=== PATIENT | female | born 1980 | race Caucasian/White ===

== ENCOUNTER 2019-05-10 12:01 | Inpatient (IN) | payer MEDICAID ==
[~2019-05-10] VITALS: Ht 167.6 cm; Wt 78.9 kg
[2019-05-10 12:26] LABS: HEMOGLOBIN 14.3 g/dL (12-16); MCH 30.9 pg (26.0-34.0); MCHC 34.9 g/dL (31.0-37.0); MCV 88.6 fL (80.0-100.0); MEAN PLATELET VOLUME 9.5 fL (7.4-10.4); PLATELET COUNT 267 10x3/uL (130-400); RBC 4.63 10x6/uL (4.00-5.40); RDW 12.4 % (11.5-14.5); WBC 21.2 10x3/uL (4.8-10.8)
[2019-05-10 12:36] LABS: HCG SERUM NEGATIVE (NEGATIVE)
[2019-05-10 12:51] LABS: LYMPHOCYTES 4 % (15-50); NEUTROPHILS 84 % (40-80); PLATELET ESTIMATE NORMAL
[2019-05-10 12:56] LABS: ALBUMIN 3.5 g/dL (3.4-5.0); ALKALINE PHOSPHATASE 85 U/L (46-116); ALT (SGPT) 19 U/L (10-68); AMYLASE - SERUM 12 U/L (25-115); BILIRUBIN - TOTAL 0.97 mg/dL (0.2-1.3); CALC OSMOLALITY 271 mosm/kg (275-300); CALCIUM 9.1 mg/dL (8.5-10.1); CHLORIDE - SERUM 102 mmol/L (98-107); CREATININE - SERUM 0.8 mg/dL (0.6-1.3); GLUCOSE 114 mg/dL (74-106); LIPASE 36 U/L (73-393); PROTEIN - SERUM 7.3 g/dL (6.4-8.2); SODIUM 136 mmol/L (136-145); UREA NITROGEN 9 mg/dL (7-18); eGFR NON AFRICAN AMERICAN 84 mL/min (90-120)
--- NOTE | 2019-05-10 14:07 | NUR ---
PT REPORTS "SPASMS" IN RIGHT FLANK AREA AT THIS TIME. EDP, ISADORA, INFORMED.
[2019-05-10 14:11] VITALS: BP 132/89
[2019-05-10 14:43] LABS: APPEARANCE CLEAR (CLEAR); BILIRUBIN NEGATIVE (NEGATIVE); COLOR YELLOW (YELLOW); GLUCOSE NEGATIVE (NEGATIVE); KETONE NEGATIVE (NEGATIVE); NITRITE NEGATIVE (NEGATIVE); PROTEIN NEGATIVE (NEGATIVE); SPECIFIC GRAVITY 1.005 (1.005-1.020); UROBILINOGEN NORMAL (NORMAL)
[2019-05-10 14:46] LABS: HCG URINE NEGATIVE (NEGATIVE)
--- NOTE | 2019-05-10 15:00 | NUR ---
DR. MUIR AT BEDSIDE UPDATING PT ON POC.
--- NOTE | 2019-05-10 15:01 | NUR ---
RECEIVED REPORT FROM ERNIE LEONE
--- NOTE | 2019-05-10 15:04 | NUR ---
PT REPORT GIVEN TO ERNIE SAM, UTILIZING SBAR FORMAT.
--- NOTE | 2019-05-10 15:15 | NUR ---
PT PROVIDED WITH ICE WATER AT THIS TIME.
[2019-05-10 17:14] VITALS: BP 122/70; BMI 27.5
[2019-05-10 18:16] LABS: UDS - AMPHET POSITIVE QUAL (NEGATIVE); UDS - BARB NEGATIVE QUAL (NEGATIVE); UDS - BENZO NEGATIVE QUAL (NEGATIVE); UDS - COCAINE NEGATIVE QUAL (NEGATIVE); UDS - OPIATE POSITIVE QUAL (NEGATIVE); UDS - PCP NEGATIVE QUAL (NEGATIVE); UDS - THC NEGATIVE QUAL (NEGATIVE)
[2019-05-10 20:00] VITALS: BP 110/73
[2019-05-11] VITALS: BP 109/64
[2019-05-11 04:00] VITALS: BP 100/67
[2019-05-11 06:31] LABS: BASOPHILS 0.2 % (0-2); EOSINOPHILS 0.3 % (0-7); HEMATOCRIT 37.8 % (36.0-48.0); HEMOGLOBIN 12.7 g/dL (12-16); IMMATURE GRANULOCYTES 0.3 % (0-5); LYMPHOCYTES 7.7 % (15-50); MCH 30.5 pg (26.0-34.0); MCHC 33.6 g/dL (31.0-37.0); MEAN PLATELET VOLUME 9.8 fL (7.4-10.4); MONOCYTES 4.2 % (2-11); NEUTROPHILS 87.3 % (40-80); PLATELET COUNT 241 10x3/uL (130-400); RBC 4.17 10x6/uL (4.00-5.40); RDW 12.7 % (11.5-14.5); WBC 17.8 10x3/uL (4.8-10.8)
[2019-05-11 06:54] LABS: MCV 90.6 fL (80.0-100.0)
[2019-05-11 07:14] LABS: ALBUMIN 2.9 g/dL (3.4-5.0); ALKALINE PHOSPHATASE 76 U/L (46-116); ALT (SGPT) 15 U/L (10-68); BILIRUBIN - TOTAL 0.67 mg/dL (0.2-1.3); CALC OSMOLALITY 272 mosm/kg (275-300); CALCIUM 8.5 mg/dL (8.5-10.1); CARBON DIOXIDE 24.9 mmol/L (21.0-32.0); CHLORIDE - SERUM 103 mmol/L (98-107); CREATININE - SERUM 0.7 mg/dL (0.6-1.3); GLUCOSE 83 mg/dL (74-106); POTASSIUM - SERUM 3.4 mmol/L (3.5-5.1); PROTEIN - SERUM 6.5 g/dL (6.4-8.2); SODIUM 138 mmol/L (136-145); UREA NITROGEN 7 mg/dL (7-18); eGFR NON AFRICAN AMERICAN > 90 mL/min (90-120)
--- NOTE | 2019-05-11 08:02 | HP ---
PATIENT: ADRWIN SUAREZ MEDICAL RECORD: [id number] ACCOUNT: [id number] LOCATION:[facility] [address] : [birth year] ADMISSION DATE: 05/10/19 PCP: No PCP HISTORY AND PHYSICAL EXAMINATION DATE OF ADMISSION: 05/10/2019 CHIEF COMPLAINT: Abdominal pain. HISTORY OF PRESENT ILLNESS: This is a 38-year-old white female who is followed by Pretty Brock APN, at [facility]. She presented to the Emergency Department today complaining of abdominal cramping and pain mostly across the lower abdomen but also in the right flank, it has been going on for 2-3 days. The patient denies having nausea or vomiting. She denies having diarrhea. She states sometimes has been hard for her to urinate. In the Emergency Room, her CBC showed a white blood cell count 21,200. She was not anemic, there were 84% PMNs and 12% bands. Basic metabolic panel was unremarkable. Liver functions were normal. Amylase and lipase were actually low. Urinalysis was normal. CT of the abdomen and pelvis showed no acute process seen. Her heart rate when she arrived in the ER was 130 and coupling her elevated white blood cell count and her tachycardia, especially with a left shift of the white blood cell count, there was a concern for possible sepsis and she is admitted. PAST MEDICAL HISTORY: She has had lumbar spondylosis. She has had a history of neuropathy. There was a note from [facility] from early 2018, where they were trying to treat her lumbar pain using tramadol; however, her urine drug screen then came back positive for methamphetamines and they did not write any further pain medicines. PAST SURGICAL HISTORY: She states for about 10 years ago at an outside hospital out of this town she had "surgery" in the thoracic area. She states her lungs were surrounded by fluid. ALLERGIES: None known. CURRENT MEDICATIONS: She is not taking anything. She states she has stopped all her medications. She had been on duloxetine, gabapentin, tramadol, metoprolol tartrate, reportedly for hypertension and ProAir HFA as needed for breathing. SOCIAL HISTORY: She is not . She has a child. FAMILY HISTORY: Mother is living with a history of hypertension and arthritis. Father is living with a history of some sort of cancer. HABITS: She smokes cigarettes. Denies alcohol or drug use. REVIEW OF SYSTEMS: GENERAL: No major weight changes. HEENT: No particular sinus or allergy problems. RESPIRATORY: No diagnosis of emphysema or asthma. CARDIAC: No diagnosis of heart problems. HISTORY AND PHYSICAL [id number] DARWIN SUAREZ GASTROINTESTINAL: Denies diarrhea, constipation or heartburn. GENITOURINARY: No significant problems there. MUSCULOSKELETAL: He has had low back pain with spondylosis. NEUROLOGIC: No seizures. No migraines. PSYCHIATRIC: There is no diagnosis of depression or anxiety. PHYSICAL EXAMINATION: VITAL SIGNS: In the ER, her initial vital signs show temperature 98.8, heart rate 130, respirations 18, blood pressure 130/78, O2 sat 100%. When she got to the floor, temperature was 99.3, heart rate 119, respirations 18, blood pressure 122/70, O2 sat 97%. GENERAL: She is awake and alert. She is complaining of abdominal pain and cramping. SKIN: Warm and dry. HEENT: Grossly within normal limits. NECK: Supple. HEART: Tachycardic. ABDOMEN: Soft. There is generalized tenderness especially in the lower abdomen. No mass. There is no guarding. There is no rebound, there is tenderness to palpation. EXTREMITIES: No edema. LABORATORY DATA: CBC showed a white count of 21,200, hemoglobin 14.3, hematocrit 41.0. Platelets are normal. There are 84% neutrophils and 12% bands. Basic Metabolic Panel: Sodium 136, potassium 4.0, chloride 102, CO2 of 26, BUN 9, creatinine 0.8, glucose 114, and calcium 9.1. Liver enzymes were all normal. Amylase is low at 12. Lipase is low at 36. HCG is negative. ASSESSMENT: 1. Abdominal pain with elevated white blood cell count with left shift. 2. Tachycardia. PLAN: She is admitted, started on IV antibiotics for her elevated white count and tachycardia. It was reported in the ER that she had had some nausea and vomiting, but I am not aware of any diarrhea. I believe stool studies were ordered in the ER, blood cultures and urine cultures and urine drug screen. Other tests and procedures as warranted. ADDENDUM: Her urine drug screen has come back and it was positive for opiates and amphetamines. I went to [facility] and looked her name and date of up and the last time she was prescribed any opiates including tramadol was in January. She tells me she is not taking anything, so tomorrow I will ask her about drug use again, see what she says. Other tests and procedures as warranted. HISTORY AND PHYSICAL [id number] DARWIN SUAREZ TRANSINT:[id number] Voice Confirmation ID: [id number] DOCUMENT ID: [id number] FIDE JOHNSON MD at 0802 CC: [id number] DICTATION DATE: 05/10/191954 LINE TESTER: 05/10/192125 [facility] [place] [id number] [place] [address]
--- NOTE | 2019-05-11 08:45 | NUR ---
PATIENT IN BED WITH IV INTACT. NO COMPLAINTS OR SIGNS OF DISTRESS. FAMILY AT BEDSIDE. CALL LIGHT WITHIN REACH.
[2019-05-11 08:52] VITALS: BP 123/79
[2019-05-11 12:03] VITALS: BP 106/72
--- NOTE | 2019-05-11 12:30 | NUR ---
PATIENT SITTING UP IN BED WITH IV INTACT. NO COMPLAINTS. FAMILY AT BEDSIDE. CALL LIGHT WITHIN REACH. ENCOURAGED PATIENT TO GET UP AND AMBULATE TO HELP WITH GAS AND CONSTIPATION.
[2019-05-11 17:02] VITALS: BP 140/64
--- NOTE | 2019-05-11 18:00 | NUR ---
SUPPOSITORY ORDERED AT THIS TIME FOR CONSTIPATION. PATIENT REFUSES AND SAYS SHE WILL TAKE LATER. SAYS SHE DOESNT THINK SHE CAN HAVE A BM BECAUSE SHE HASNT ATE ANYTHING BESIDES CLEARS. EXPLAINED TO PATIENT THAT IF IT HAS BEEN 6 DAYS SINCE HER LAST BM THAT SHE REALLY NEEDS TO TRY TO HAVE A BM TO HELP RELIEVE SOME PAIN. CALL LIGHT WITHIN REACH.
--- NOTE | 2019-05-11 19:00 | NUR ---
PATIENT ALERT AND ORIENTED X4. PATIENT STATES THAT PAIN IS A 8 OUT OF 10, REQUESTED PAIN MEDS. TOLD PATIENT IT IS NOT TIME FOR HER PAIN MEDS YET. PATIENT STATED THAT SHE HAS NOT HAD BOWEL MOVEMENT IN 6 DAYS. PATIENT WAS TOLD THAT SHE COULD HAVE SUPPOSITORY AND THAT WE NEED TO COLLECT A STOOL SPECIMEN IF SHE IS ABLE TO HAVE BM. PATIENTS BED IN LOW POSITION. CALL LIGHT AND TABLE IN REACH.
[2019-05-11 20:34] VITALS: BP 128/76
[2019-05-12 00:42] VITALS: BP 134/80
[2019-05-12 04:52] VITALS: BP 161/91
[2019-05-12 06:12] LABS: BASOPHILS 0.1 % (0-2); EOSINOPHILS 0.1 % (0-7); HEMATOCRIT 36.5 % (36.0-48.0); HEMOGLOBIN 12.2 g/dL (12-16); IMMATURE GRANULOCYTES 0.2 % (0-5); LYMPHOCYTES 4.8 % (15-50); MCH 30.7 pg (26.0-34.0); MCHC 33.4 g/dL (31.0-37.0); MCV 91.7 fL (80.0-100.0); MONOCYTES 4.7 % (2-11); NEUTROPHILS 90.1 % (40-80); PLATELET COUNT 215 10x3/uL (130-400); RBC 3.98 10x6/uL (4.00-5.40); RDW 12.5 % (11.5-14.5); WBC 13.9 10x3/uL (4.8-10.8)
[2019-05-12 06:36] LABS: CALC OSMOLALITY 277 mosm/kg (275-300); CARBON DIOXIDE 22.6 mmol/L (21.0-32.0); CHLORIDE - SERUM 106 mmol/L (98-107); CREATININE - SERUM 0.5 mg/dL (0.6-1.3); GLUCOSE 74 mg/dL (74-106); POTASSIUM - SERUM 3.8 mmol/L (3.5-5.1); SODIUM 141 mmol/L (136-145); UREA NITROGEN 8 mg/dL (7-18); eGFR NON AFRICAN AMERICAN > 90 mL/min (90-120)
--- NOTE | 2019-05-12 08:45 | NUR ---
PATIENT IN BED WITH IV INTACT. NO COMPLAINTS OR SIGNS OF DISTRESS. EYES CLOSED RESTING QUIETLY. CALL LIGHT WITHIN REACH.
[2019-05-12 08:57] VITALS: BP 141/81
[2019-05-12 12:11] VITALS: BP 146/85
--- NOTE | 2019-05-12 18:45 | NUR ---
PATIENT IN BED WITH IV INTACT. NO COMPLAINTS OR SIGNS OF DISTRESS. BSCDS OFF. PATIENT REFUSES. ON LOVENOX. REFUSES TO EAT. JUST IN BED WITH EYES CLOSED. CALL LIGHT WITHIN REACH.
[2019-05-12 20:45] VITALS: BP 162/81
[2019-05-13] VITALS (7 sets, daily range): BP systolic 124–171; BP diastolic 57–100
--- NOTE | 2019-05-13 00:12 | NUR ---
PT RESTING IN BED. EYES CLOSED NO SIGNS OF DISTRESS. BREATHING EVEN AND UNLABORED. IV SITE LT AC DRESSING CLEAN DRY AND INTACT. NO SIGNS OF INFECTION. IV FLUIDS RUNNING. ABD DISTENDED. SKIN CLEAN DRY AND INTACT. WILL CONTINUE PLAN OF CARE. CALL LIGHT IN REACH. BED LOWERED AND LOCKED. BED RAILS UPX2.
--- NOTE | 2019-05-13 02:18 | NUR ---
I have reviewed this patient and I concur with the Shift Assessment completed by the Licensed Practical Nurse today this shift.
[2019-05-13 05:41] LABS: BASOPHILS 0.2 % (0-2); EOSINOPHILS 2.1 % (0-7); HEMATOCRIT 35.1 % (36.0-48.0); HEMOGLOBIN 12.1 g/dL (12-16); IMMATURE GRANULOCYTES 0.3 % (0-5); LYMPHOCYTES 13.6 % (15-50); MCH 30.3 pg (26.0-34.0); MCHC 34.5 g/dL (31.0-37.0); MEAN PLATELET VOLUME 9.6 fL (7.4-10.4); MONOCYTES 8.7 % (2-11); NEUTROPHILS 75.1 % (40-80); RBC 3.99 10x6/uL (4.00-5.40); RDW 12.2 % (11.5-14.5)
[2019-05-13 05:48] LABS: PLATELET COUNT 278 10x3/uL (130-400); WBC 9.3 10x3/uL (4.8-10.8)
[2019-05-13 05:50] LABS: CALCIUM 8.2 mg/dL (8.5-10.1); CARBON DIOXIDE 25.7 mmol/L (21.0-32.0); CHLORIDE - SERUM 106 mmol/L (98-107); CREATININE - SERUM 0.5 mg/dL (0.6-1.3); GLUCOSE 91 mg/dL (74-106); SODIUM 141 mmol/L (136-145); eGFR NON AFRICAN AMERICAN > 90 mL/min (90-120)
[2019-05-13 05:53] LABS: CALC OSMOLALITY 277 mosm/kg (275-300); POTASSIUM - SERUM 3.1 mmol/L (3.5-5.1); UREA NITROGEN 3 mg/dL (7-18)
--- NOTE | 2019-05-13 07:49 | NUR ---
REC'D IN BED WITH EYES CLOSED EASILY TO AROUSED WHEN NAME IS CALLED. RESP EVEN AND UNLABORED WITH NO DISTRESS NOTED. CAN EXPRESS NEEDS AND WANTS. NO C/O NOTED OR VOCIED. ASSESSMENT COMPLETED. C/L IN REACH AT BEDSIDE.
[2019-05-13 09:50] LABS: MAGNESIUM - SERUM 1.8 mg/dL (1.8-2.4); PHOSPHOROUS 2.2 mg/dL (2.5-4.9)
--- NOTE | 2019-05-13 10:11 | NUR ---
CALLED WAS PLACED TO DR. JOHNSON ABOUT GETTING PT PAIN MEDICATION CHANGES FROM IV TO PO PER GRANDMOTHER REQUEST. GRANDMOTHER STATED THAT PT HAS A DRUG ADDITION PROBLEM AND THAT SHE WAS CONCERN ABOUT THE MEDCIATION SHE WAS RECEIVING. DR. JOHNSON SPOKE WITH GRANDMOTHER ON PHONE AND NO NEW ORDERS WAS GIVEN AT THIS TIME. C/L IN REACH AT BEDSIDE.
--- NOTE | 2019-05-13 12:31 | NUR ---
C/O ABD PAIN RATING 7/10 ON PAIN SCALE. MEDICATED WITH PRN PAIN MEDS PER ORDERS AT THIS TIME. C/L IN REACH AT THIS TIME. CL IN REACH AT BEDSIDE
--- NOTE | 2019-05-13 16:51 | MORECARE ---
CASE MANAGEMENT DISCHARGE SUMMARY PATIENT: DARWIN SUAREZ UNIT: [id number] ADM DATE: 05/10/19 AGE: 38 : [birth year] SEX: F ROOM/BED: D.2226 AUTHOR: RANDALL ZHONG PHYSICIAN: REFERRING PHYSICIAN: FIDE JOHNSON MD DATE OF SERVICE: 05/13/19 Discharge Plan Patient Name: DARWIN SUAREZ Facility: [facility]:[place] : 1980 Planned Disposition: Home Anticipated Discharge Date: Discharge Date: Expected LOS: Initial Reviewer: [email or web address] Initial Review Date: 05/13/2019 Generated: 05/13/19 5:50 pm Comments DCP- Discharge Planning Updated by [email or web address]: Yahaira Canseco on 05/13/19 3:[address] Patient is asleep, I will meet with her tomorrow. Patient Name: DARWIN SUAREZ Page [id number] at 1651 All edits/amendments must be made on the electronic document DICTATION DATE: 05/13/191649 LABORER ORCHARD: FRANK 05/13/191649 RPT#: [id number] DC DATE: STATUS: ADM IN [facility] [address] [place] [address] END OF REPORT
[2019-05-14 01:10] VITALS: BP 177/93
--- NOTE | 2019-05-14 03:55 | NUR ---
PATIENT IS ALERT AND ORENTED ABLE TO VOICE NEEDS AND WANTS TO STAFF. TO ONE [place] AND HAS REFUSED TO TAKE ANY MORE. HAS HAD STOOL X 3 PER PT. SAMPLE SENT TO LAB.
[2019-05-14 05:56] VITALS: BP 164/89
[2019-05-14 06:24] LABS: BASOPHILS 0.3 % (0-2); EOSINOPHILS 3.3 % (0-7); HEMATOCRIT 35.2 % (36.0-48.0); HEMOGLOBIN 12.1 g/dL (12-16); IMMATURE GRANULOCYTES 0.1 % (0-5); LYMPHOCYTES 17.5 % (15-50); MCH 30.1 pg (26.0-34.0); MCHC 34.4 g/dL (31.0-37.0); MCV 87.6 fL (80.0-100.0); MEAN PLATELET VOLUME 9.5 fL (7.4-10.4); MONOCYTES 10.3 % (2-11); NEUTROPHILS 68.5 % (40-80); PLATELET COUNT 312 10x3/uL (130-400); RBC 4.02 10x6/uL (4.00-5.40); RDW 12.3 % (11.5-14.5); WBC 7.9 10x3/uL (4.8-10.8)
[2019-05-14 06:37] LABS: CALC OSMOLALITY 281 mosm/kg (275-300); CARBON DIOXIDE 27.7 mmol/L (21.0-32.0); CHLORIDE - SERUM 106 mmol/L (98-107); CREATININE - SERUM 0.5 mg/dL (0.6-1.3); GLUCOSE 96 mg/dL (74-106); POTASSIUM - SERUM 3.2 mmol/L (3.5-5.1); SODIUM 143 mmol/L (136-145); UREA NITROGEN 5 mg/dL (7-18); eGFR NON AFRICAN AMERICAN > 90 mL/min (90-120)
[2019-05-14 07:14] LABS: HEPATITIS C ANTIBODY <0.1 S/CO RAT (0.0-0.9)
--- NOTE | 2019-05-14 08:07 | NUR ---
PATIENT RECIEVED FROM PREVIOUS SHIFT RESTING IN BED. ALERT AND ORIENTED, REPORTS LOWER ABDOMINAL PAIN OF 6, ALSO REPORTS 3 LARGE BM LAST PM. PATIENT IS HESITANT AND SLOWLY DRINKING LAXATIVE ORDERED
[2019-05-14 08:16] VITALS: BP 160/96
[2019-05-14 11:52] VITALS: BP 158/93
[2019-05-14 13:16] VITALS: Ht 167.6 cm; Wt 78.9 kg
--- NOTE | 2019-05-14 15:37 | MORECARE ---
CASE MANAGEMENT DISCHARGE SUMMARY PATIENT: DARWIN SUAREZ UNIT: [id number] ADM DATE: 05/10/19 AGE: 38 : 78 SEX: F ROOM/BED: D.2226 AUTHOR: TREVIN,DOC PHYSICIAN: REFERRING PHYSICIAN: FIDE JOHNSON MD DATE OF SERVICE: 05/14/19 Discharge Plan Patient Name: DARWIN SUAREZ Facility: [facility]:[place] : 1980 Planned Disposition: Home Anticipated Discharge Date: Discharge Date: Expected LOS: Initial Reviewer: [email or web address] Initial Review Date: 05/13/2019 Generated: 05/14/19 4:37 pm Comments DCP- Discharge Planning Updated by [email or web address]: Yahaira Canseco on 05/14/19 2:[address] Patient Name: DARWIN SUAREZ Admission Status: ER Accout number: [id number] Admission Date: 05-10-2019 : 1980 Admission Diagnosis:UNSPECIFIED ABDOMINAL PAIN Attending: FIDE JOHNSON Current LOS: 4 Anticipated DC Date: Planned Disposition: Home Primary Insurance: MEDICAID [place] PENDING Discharge Planning Comments: CM met with patient to complete initial dc planning assessment. CM educated patient on the CM role and verbal consent given by patient to complete assessment. Patient lives at home with her grandmother and 6 year old child. At discharge patient plans to return and feels this is a safe discharge. States her grandmother will pick her up when discharged. Patient denies known discharge needs at this time. No needs identified. CM will continue to follow and will assist as needed with dc plans/needs. Dirt Bike Racer: Yahaira Canseco DCP- Discharge Planning Updated by [email or web address]: Yahaira Canseco on 05/13/19 3:[address] Patient is asleep, I will meet with her tomorrow. DCPIA - Discharge Planning Initial Assessment Updated by [email or web address]: Yahaira Canseco on 05/14/19 3:32 pm * Is the patient Alert and Oriented? Yes * How many steps to enter\exit or inside your home? 5/0 * PCP Dr. Johnson * Pharmacy [facility] on [address] [place] * Preadmission Environment Home with Family * ADLs Independent * Equipment Nebulizer * List name and contact numbers for known caregivers / representatives who currently or will assist patient after discharge: Delfina Chambers - grandmother - [phone] * Verbal permission to speak to the caregivers and representatives has been obtained from the patient. Yes * Community resources currently utilized None * Additional services required to return to the preadmission environment? No * Can the patient safely return to the preadmission environment? Yes * Has this patient been hospitalized within the prior 30 days at any hospital? No Last DP export: 05/13/19 3:51 p Patient Name: DARWIN SUAREZ Page [id number] at 1537 All edits/amendments must be made on the electronic document DICTATION DATE: 05/14/191536 RESIDENCY PROGRAM COORDINATOR: FRANK 05/14/191536 RPT#: [id number] DC DATE: STATUS: ADM IN [facility] [address] [place] [address] END OF REPORT
[2019-05-14 17:17] VITALS: BP 143/99
--- NOTE | 2019-05-14 19:00 | NUR ---
BEDSIDE REPORT RECEIVED AND CARE OF PT ASSUMED. PT LYING IN SUPINE POSITION WATCHING TV. C/O PAIN AT LEVEL 8/10 AT THIS TIME. IV TO LEFT AC PATENT WITH NS INFUSING AT 200 ML/HR. WILL MONITOR FOR NEEDS.
--- NOTE | 2019-05-14 19:34 | NUR ---
GAVE DILAUDID 2 MG AND ZOFRAN 4 MG IVP PER C/O NAUSEA AND PAIN, PER PRN ORDERS. WILL MONITOR FOR EFFECTIVENESS.
--- NOTE | 2019-05-14 19:50 | NUR ---
CHANGED ALL IV TUBING.
--- NOTE | 2019-05-14 20:28 | NUR ---
HS MEDICATIONS GIVEN.
[2019-05-14 21:08] VITALS: BP 151/88
--- NOTE | 2019-05-14 23:42 | NUR ---
GAVE DILAUDID 2 MG AND ZOFRAN 4 MG IVP PER PT REQUEST FOR PAIN AND NAUSEA, PER PRN ORDERS. WILL MONITOR FOR EFFECTIVENESS.
[2019-05-15 00:30] VITALS: BP 139/96
--- NOTE | 2019-05-15 03:50 | NUR ---
PT SHOWERED AND ALL LINENS CHANGED.
--- NOTE | 2019-05-15 04:20 | NUR ---
GAVE DILAUDID 2 MG AND ZOFRAN 4 MG IVP PER PRN ORDERS, PER REQUEST FOR PAIN AND NAUSEA. WILL MONITOR FOR EFFECTIVENESS.
[2019-05-15 05:04] VITALS: BP 152/84
[2019-05-15 06:29] LABS: BASOPHILS 0.3 % (0-2); EOSINOPHILS 4.6 % (0-7); HEMATOCRIT 36.3 % (36.0-48.0); HEMOGLOBIN 12.2 g/dL (12-16); IMMATURE GRANULOCYTES 0.3 % (0-5); MCH 30.4 pg (26.0-34.0); MCHC 33.6 g/dL (31.0-37.0); MEAN PLATELET VOLUME 9.3 fL (7.4-10.4); NEUTROPHILS 65.8 % (40-80); PLATELET COUNT 324 10x3/uL (130-400); RBC 4.01 10x6/uL (4.00-5.40); RDW 12.4 % (11.5-14.5); WBC 7.4 10x3/uL (4.8-10.8)
[2019-05-15 06:33] LABS: MCV 90.5 fL (80.0-100.0)
[2019-05-15 06:47] LABS: CALC OSMOLALITY 285 mosm/kg (275-300); CARBON DIOXIDE 30.1 mmol/L (21.0-32.0); CHLORIDE - SERUM 107 mmol/L (98-107); CREATININE - SERUM 0.5 mg/dL (0.6-1.3); GLUCOSE 116 mg/dL (74-106); POTASSIUM - SERUM 3.2 mmol/L (3.5-5.1); SODIUM 144 mmol/L (136-145); UREA NITROGEN 6 mg/dL (7-18); eGFR NON AFRICAN AMERICAN > 90 mL/min (90-120)
--- NOTE | 2019-05-15 08:00 | NUR ---
ASSESSMENT PER FLOW SHEET. PT IS WITHOUT DISTRESS,BUT COMPLAINS OF SOME ABDOMINAL PAIN/SORENESS.REQUEST PAIN AND NAUSEA MEDS WHEN TIME.PT DENIES NAUSEA,BUT STATES NAUSEA MEDS GIVEN WITH PAIN MEDS.
[2019-05-15 08:06] VITALS: BP 112/65
[2019-05-15 12:56] VITALS: BP 137/84
[2019-05-15] MEDS ORDERED: ULTRAM50 MG PO (14:00)
--- NOTE | 2019-05-15 14:59 | MORECARE ---
CASE MANAGEMENT DISCHARGE SUMMARY PATIENT: DARWIN SUAREZ UNIT: [id number] ADM DATE: 05/10/19 AGE: 38 : 78 SEX: F ROOM/BED: D.2226 AUTHOR: TREVINDOC PHYSICIAN: REFERRING PHYSICIAN: FIDE JOHNSON MD DATE OF SERVICE: 05/15/19 Discharge Plan Patient Name: DARWIN SUAREZ Facility: [facility]:[place] : 1980 Planned Disposition: Home Anticipated Discharge Date: Discharge Date: Expected LOS: Initial Reviewer: [email or web address] Initial Review Date: 05/13/2019 Generated: 05/15/19 3:58 pm Comments DCP- Discharge Planning Updated by [email or web address]: Yahaira Canseco on 05/15/19 1:[address] Patient Name: DARWIN SUAREZ Encounter No: [id number] : 1980 Primary Insurance: MEDICAID [place] PENDING Anticipated DC Date: Planned Disposition: Home External Planned Provider: : DCP follow-up note: Patient and family in agreement with discharge plan. No changes to plan. Case management will follow and assist as needed. Yahaira Canseco DCP- Discharge Planning Updated by [email or web address]: Yahaira Canseco on 05/14/19 2:[address] Patient Name: DARWIN SUAREZ Admission Status: ER Accout number: [id number] Admission Date: 05-10-2019 : 1980 Admission Diagnosis:UNSPECIFIED ABDOMINAL PAIN Attending: FIDE JOHNSON Current LOS: 4 Anticipated DC Date: Planned Disposition: Home Primary Insurance: MEDICAID [place] PENDING Discharge Planning Comments: CM met with patient to complete initial dc planning assessment. CM educated patient on the CM role and verbal consent given by patient to complete assessment. Patient lives at home with her grandmother and 6 year old child. At discharge patient plans to return and feels this is a safe discharge. States her grandmother will pick her up when discharged. Patient denies known discharge needs at this time. No needs identified. CM will continue to follow and will assist as needed with dc plans/needs. Manager Of Care: Yahaira Canseco DCP- Discharge Planning Updated by [email or web address]: Yahaira Canseco on 05/13/19 3:[address] Patient is asleep, I will meet with her tomorrow. DCPIA - Discharge Planning Initial Assessment Updated by [email or web address]: Yahaira Bryantverito on 05/14/19 3:32 pm * Is the patient Alert and Oriented? Yes * How many steps to enter\exit or inside your home? 5/0 * PCP Dr. Johnson * Pharmacy [facility] on [address] * Preadmission Environment Home with Family * ADLs Independent * Equipment Nebulizer * List name and contact numbers for known caregivers / representatives who currently or will assist patient after discharge: Delfina batistamother - [phone] * Verbal permission to speak to the caregivers and representatives has been obtained from the patient. Yes * Community resources currently utilized None * Additional services required to return to the preadmission environment? No * Can the patient safely return to the preadmission environment? Yes * Has this patient been hospitalized within the prior 30 days at any hospital? No Last DP export: 05/14/19 2:37 p Patient Name: DARWIN SUAREZ Page [phone] at 1459 All edits/amendments must be made on the electronic document DICTATION DATE: 05/15/191457 ROAD FREIGHT BRAKE COUPLER: FRANK 05/15/191457 RPT#: [id number] DC DATE: STATUS: ADM IN [facility] [address] [place] [address] END OF REPORT
--- NOTE | 2019-05-15 16:45 | NUR ---
IV DCD WITH CATH TIP INTACT.DISCHARGE INSTRUCTIONS,STATES UNDERSTANDING. LEFT UNIT FOR TRANSPORT HOME.
--- NOTE | 2019-05-18 09:42 | MORECARE ---
CASE MANAGEMENT DISCHARGE SUMMARY PATIENT: DARWIN SUAREZ UNIT: [id number] ADM DATE: 05/10/19 AGE: 38 : 78 SEX: F ROOM/BED: D.2226 AUTHOR: RANDALL ZHONG PHYSICIAN: REFERRING PHYSICIAN: FIDE JOHNSON MD DATE OF SERVICE: 05/18/19 Discharge Plan Patient Name: DARWIN SUAREZ Facility: [facility]:[place] : 1980 Planned Disposition: Home Anticipated Discharge Date: Discharge Date: 05/15/2019 Expected LOS: Initial Reviewer: [email or web address] Initial Review Date: 05/13/2019 Generated: 05/18/19 10:41 am Comments DCP- Discharge Planning Updated by [email or web address]: Yahaira Canseco on 05/15/19 1:[address] Patient Name: DARWIN SUAREZ Encounter No: [id number] : 1980 Primary Insurance: MEDICAID [place] PEND[place] Anticipated DC Date: Planned Disposition: Home External Planned Provider: : DCP follow-up note: Patient and family in agreement with discharge plan. No changes to plan. Case management will follow and assist as needed. Yahaira Canseco DCP- Discharge Planning Updated by [email or web address]: Yahaira Canseco on 05/14/19 2:[address] Patient Name: DARWIN SUAREZ Admission Status: ER Accout number: [id number] Admission Date: 05-10-2019 : 1980 Admission Diagnosis:UNSPECIFIED ABDOMINAL PAIN Attending: FIDE JOHNSON Current LOS: 4 Anticipated DC Date: Planned Disposition: Home Primary Insurance: MEDICAID [place] PENDING Discharge Planning Comments: CM met with patient to complete initial dc planning assessment. CM educated patient on the CM role and verbal consent given by patient to complete assessment. Patient lives at home with her grandmother and 6 year old child. At discharge patient plans to return and feels this is a safe discharge. States her grandmother will pick her up when discharged. Patient denies known discharge needs at this time. No needs identified. CM will continue to follow and will assist as needed with dc plans/needs. Metal Base Blocker: Yahaira Canseco DCP- Discharge Planning Updated by [email or web address]: Yahaira Canseco on 05/13/19 3:[address] Patient is asleep, I will meet with her tomorrow. DCPIA - Discharge Planning Initial Assessment Updated by [email or web address]: Yahaira Canseco on 05/14/19 3:32 pm * Is the patient Alert and Oriented? Yes * How many steps to enter\exit or inside your home? 5/0 * PCP Dr. Johnson * Pharmacy [facility] on [address] * Preadmission Environment Home with Family * ADLs Independent * Equipment Nebulizer * List name and contact numbers for known caregivers / representatives who currently or will assist patient after discharge: Delfina batistamother - [phone] * Verbal permission to speak to the caregivers and representatives has been obtained from the patient. Yes * Community resources currently utilized None * Additional services required to return to the preadmission environment? No * Can the patient safely return to the preadmission environment? Yes * Has this patient been hospitalized within the prior 30 days at any hospital? No Last DP export: 05/15/19 1:59 p Patient Name: DARWIN SUAREZ Page [id number] at 0942 All edits/amendments must be made on the electronic document DICTATION DATE: 05/18/19940 CLINICAL LABORATORY DIRECTOR: FRANK 05/18/19940 RPT#: [id number] DC DATE:05/15/19 STATUS: DIS IN [facility] [address] [place] [address] END OF REPORT
[2019-05-19 17:08] LABS: OVA + PARASITE EXAM Final report (())
== END 2019-05-15 16:47 | disposition home or self-care (01) | DRG 392 ==
LOC: D.ER 12:01 → D.MS 15:38
PROVIDERS: Family Medicine; Surgery; ADMIT Family Medicine; ATTEND Family Medicine
DX: K58.1 Irritable bowel syndrome with constipation (principal); R10.9 Unspecified abdominal pain; D72.829 Elevated white blood cell count, unspecified; R00.0 Tachycardia, unspecified